=== PATIENT | female | born 1975 | race Two or more races ===

== ENCOUNTER 2022-05-16 10:18 | Inpatient (IN) | payer MEDICAID ==
[~2022-05-16] VITALS: Ht 152.4 cm; Wt 66.6 kg
[2022-05-16 11:34] LABS: Basophils # (auto) 0 10 ^3/uL (0-0.2); Basophils % (auto) 0.3 % (0.0-2.0); Eosinophils # (auto) 0 10 ^3/uL (0-0.8); Eosinophils % (auto) 0.5 % (0.0-7.0); Hematocrit 43.6 % (36.0-46.0); Hemoglobin 13.9 g/dL (12.2-16.2); Lymphocytes # (auto) 0.8 10 ^3/uL (0.4-5.4); Lymphocytes % (auto) 9.4 % (10.0-50.0); Mean Corpuscular Hemoglobin 23.7 pg (28.0-32.0); Mean Corpuscular Hgb Conc. 31.8 g/dL (32.0-36.0); Mean Corpuscular Volume 74.7 fL (80.0-100.0); Monocytes # (auto) 0.4 10 ^3/uL (0-1.3); Monocytes % (auto) 5.4 % (0.0-12.0); Neutrophils # (auto) 6.7 10 ^3/uL (1.6-8.6); Neutrophils % (auto) 84.4 % (37.0-80.0); Nucleated Red Blood Cells % 0.1 %; Red Blood Cells 5.84 10^6/uL (4.0-5.20)
[2022-05-16 11:35] LABS: Red Cell Distribution Width 33.9 % (11.8-14.3)
[2022-05-16 11:55] LABS: Calcium 8.7 mg/dL (8.5-10.1); Potassium 3.8 mmol/L (3.5-5.1)
[2022-05-16 11:58] LABS: BUN/Creatinine Ratio 15.1; Bilirubin, Total 0.4 mg/dL (0.2-1.0); Total Protein 8.5 g/dL (6.4-8.2)
[2022-05-16 12:33] LABS: Urine Bacteria NONE SEEN /hpf (None Seen); Urine Blood Negative /uL (Negative); Urine Hyaline Cast MANY /lpf (0 - 2); Urine Mucus MANY (None Seen); Urine Specific Gravity 1.037 (1.001-1.035); Urine WBC 24 /hpf (0 - 5)
[2022-05-16] MEDS ORDERED: IBU600T PO (13:08)
[2022-05-16] MEDS ORDERED: NITR-87 PO (13:08)
[2022-05-16] MEDS ORDERED: MORPHINE SULFATE 4 MG/ML SYR/VIAL IV ONE (14:15)
[2022-05-16] MEDS ORDERED: SODIUM CHLORIDE 0.9% 1,000 ML IV ONE ×2 (14:15)
[2022-05-16] MEDS ORDERED: ONDANSETRON HCL 4 MG/2 ML VIAL IV ONE (14:15)
[2022-05-16] MEDS ORDERED: ONDANSETRON HCL 4 MG/2 ML VIAL IV PRN (18:45)
[2022-05-16] MEDS ORDERED: cefTRIAXone 1GM/50ML D5W 50 ML IV ONE (18:45)
[2022-05-16] MEDS ORDERED: MORPHINE SULFATE INJ 2 MG/ml SYRG IV PRN (18:45)
[2022-05-16] MEDS ORDERED: PANTOPRAZOLE 40 MG/10 ML VIAL INJ IV ONE (18:45)
[2022-05-16] MEDS: SODIUM CHLORIDE 0.9% 1,000 ML IV SCH (18:59)
[2022-05-16 19:34] LABS: Cholesterol 198 mg/dL (< 200)
[2022-05-16 19:37] LABS: HDL Cholesterol 61 mg/dL (40-59); LDL Cholesterol 139 mg/dL (< 100); Triglycerides 150 mg/dL (< 150)
[2022-05-16 22:00] VITALS: BP 133/78
[2022-05-17] MEDS: SODIUM CHLORIDE 0.9% 1,000 ML IV SCH ×2 (02:45→10:45)
[2022-05-17 05:00] VITALS: BP 126/69
[2022-05-17 06:08] LABS: Basophils # (auto) 0 10 ^3/uL (0-0.2); Eosinophils # (auto) 0 10 ^3/uL (0-0.8); Eosinophils % (auto) 0.5 % (0.0-7.0); Hemoglobin 11.8 g/dL (12.2-16.2); Lymphocytes # (auto) 0.8 10 ^3/uL (0.4-5.4); Monocytes # (auto) 0.5 10 ^3/uL (0-1.3); Nucleated Red Blood Cells % 0.1 %
[2022-05-17 06:11] LABS: Basophils % (auto) 0.6 % (0.0-2.0); Hematocrit 37.1 % (36.0-46.0); Lymphocytes % (auto) 15.4 % (10.0-50.0); Mean Corpuscular Hemoglobin 23.7 pg (28.0-32.0); Mean Corpuscular Hgb Conc. 31.8 g/dL (32.0-36.0); Mean Corpuscular Volume 74.7 fL (80.0-100.0); Monocytes % (auto) 10.4 % (0.0-12.0); Neutrophils # (auto) 3.6 10 ^3/uL (1.6-8.6); Neutrophils % (auto) 73.1 % (37.0-80.0); Red Blood Cells 4.96 10^6/uL (4.0-5.20); White Blood Cell 4.9 10^3/uL (4.4-10.8)
[2022-05-17 06:18] LABS: Red Cell Distribution Width 33.9 % (11.8-14.3)
[2022-05-17 06:27] LABS: Potassium 3.4 mmol/L (3.5-5.1)
[2022-05-17 06:33] LABS: BUN/Creatinine Ratio 11.5; Bilirubin, Total 0.3 mg/dL (0.2-1.0); Calcium 7.6 mg/dL (8.5-10.1); Total Protein 6.5 g/dL (6.4-8.2)
[2022-05-17] MEDS ORDERED: cefTRIAXone 1GM/50ML D5W 50 ML IV SCH (09:00)
[2022-05-17 09:24] VITALS: BP 122/71
[2022-05-17] MEDS ORDERED: PANTOPRAZOLE 40 MG/10 ML VIAL INJ IV SCH (10:00)
[2022-05-17 13:02] VITALS: BP 123/79
[2022-05-17 16:52] VITALS: BP 123/70
[2022-05-17] MEDS ORDERED: CEPH-322 PO (17:05)
[2022-05-17 18:07] VITALS: BP 122/71
[2022-05-19 09:59] LABS: Hepatitis B Surface Antibody Negative (Negative)
[2022-05-19 10:31] LABS: Hepatitis A Total Antibody Positive (Negative)
[2022-05-19 13:07] LABS: Hepatitis C Antibody Negative (Negative)
== END 2022-05-17 18:40 | disposition home or self-care (01) | DRG 463 ==
LOC: ER 10:18 → WEST WING 18:33
PROVIDERS: ADMIT Registered Nurse; ATTEND Registered Nurse
DX: N39.0 Urinary tract infection, site not specified (principal); K76.0 Fatty (change of) liver, not elsewhere classified; D64.9 Anemia, unspecified; E03.9 Hypothyroidism, unspecified; N28.1 Cyst of kidney, acquired; R80.9 Proteinuria, unspecified; R82.4 Acetonuria; Z20.822 Contact with and (suspected) exposure to COVID-19
CPT/HCPCS: 36415; 74176; 80053; 80061; 81001; 84443; 85025; 86038; 86704; 86706; 86708; 86803; 87086; 87340; 96361; 96365; 96375; C9113; G0378; J0696; J2405